=== PATIENT | male | born 1985 | race African-American/Black ===

== ENCOUNTER 2019-08-24 08:32 | Emergency (ER) | payer OTHER ==
[~2019-08-24] VITALS: Ht 170.2 cm; Wt 72.6 kg
[~2019-08-24 08:32] MED LIST: AMOXICILLIN 50500 M1 PO; AZITHROMYCIN 2250 MG PO; FLEXERIL PO; IBUPROFEN 600600 M1 PO; NAPROSYN500 MG PO; NOHOMEMEDICATIONS; NORCO 5-325 TA1 EACH PO; TRAMADOL 50 MG50 MG PO
[2019-08-24 08:33] VITALS: BP 125/78
[2019-08-24] MEDS ORDERED: NORFLEX100 MG PO (08:45)
[2019-08-24] MEDS ORDERED: NAPROSYN500 MG PO (08:45)
== END 2019-08-24 09:03 | disposition home or self-care (01) ==
LOC: ER 08:32
DX: S76.312A Strain of muscle, fascia and tendon of the posterior muscle group at thigh level, left thigh, initial encounter (principal); F17.210 Nicotine dependence, cigarettes, uncomplicated; X50.9XXA Other and unspecified overexertion or strenuous movements or postures, initial encounter; Y93.89 Activity, other specified; Y92.89 Other specified places as the place of occurrence of the external cause; Y99.8 Other external cause status